=== PATIENT | female | born 2000 | race Caucasian/White ===

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

== ENCOUNTER 2023-02-24 12:01 | Emergency (ER) | payer OTHER, BC ==
[2023-02-24 12:30] VITALS: BP 123/83; PULSE 101
== END 2023-02-24 12:37 | disposition home or self-care (01) ==
LOC: MW.ED 12:01
DX: S20.319A Abrasion of unspecified front wall of thorax, initial encounter (principal); Y04.0XXA Assault by unarmed brawl or fight, initial encounter
CPT/HCPCS: 99283